=== PATIENT | male | born 1970 | race American Indian/Alaskan Native ===

== ENCOUNTER 2021-03-20 23:55 | Emergency (ER) | payer SELFPAY | END 2021-03-21 01:11 | LOC: ED 23:55 | DX: K59.00 Constipation, unspecified (principal); Z53.21 Procedure and treatment not carried out due to patient leaving prior to being seen by health care provider ==

== ENCOUNTER 2022-04-21 10:09 | Inpatient (IN) | payer SELFPAY ==
[2022-04-21 11:06] LABS: Mucus,Urine FEW /HPF
[2022-04-21 11:27] LABS: Basophils % (Auto) 0.3 % (0.0-1.8); Hematocrit 48.4 % (35.5-45.6); Hemoglobin 16.4 gm/dl (11.8-15.2); Lymphocytes # (Auto) 1.4 K/mm3 (1.2-5.4); Lymphocytes % (Auto) 11.4 % (13.4-35.0); Mean Corpuscular HGB Conc 34 % (32-34); Mean Corpuscular Volume 89 fl (84-94); Monocytes # (Auto) 0.6 K/mm3 (0.0-0.8); Monocytes % (Auto) 4.5 % (0.0-7.3); Platelet Count 377 K/mm3 (140-440); Red Blood Count 5.42 M/mm3 (3.65-5.03); Red Cell Distribution Width 13.3 % (13.2-15.2)
[2022-04-21 11:55] LABS: Alanine Aminotransferase 20 units/L (7-56); Albumin 4.9 g/dL (3.9-5); BUN/Creatinine Ratio 8; Blood Urea Nitrogen 8 mg/dL (9-20); Calcium 10.4 mg/dL (8.4-10.2); Hemolysis Index 4
[2022-04-21] MEDS ORDERED: MORPHINE 4 MG/1 ML INJ IV ONE ×2 (14:58→16:52)
[2022-04-21] MEDS ORDERED: ONDANSETRON 4 MG/2 ML INJ IV ONE (14:58)
[2022-04-21] MEDS ORDERED: SODIUM CHLORIDE 0.9% 1000 ML 1,000 ML IV ONE (14:58)
--- NOTE | 2022-04-21 17:08 | Cat Scan Report ---
CT ABDOMEN AND PELVIS WITHOUT CONTRAST INDICATION / CLINICAL INFORMATION: periumbilical pain. TECHNIQUE: Axial CT images were obtained through the abdomen and pelvis without IV contrast. All CT scans at this location are performed using CT dose reduction for ALARA by means of automated exposure control. COMPARISON: None available. FINDINGS: LOWER CHEST: No significant abnormality LIVER: Steatosis. GALLBLADDER/BILIARY TREE: No significant abnormality PANCREAS: No significant abnormality SPLEEN: No significant abnormality ADRENALS: No significant abnormality RIGHT KIDNEY / URETER: No significant abnormality LEFT KIDNEY / URETER: No significant abnormality URINARY BLADDER: No significant abnormality REPRODUCTIVE ORGANS: No significant abnormality STOMACH / BOWEL: Small bowel postoperative anastomosis in the central abdomen and lower anterior abdo men. Mid small bowel within the central and left abdomen is moderately dilated, fluid-filled, and inf lamed. There is abrupt transition in the region of the anastomotic suture in the central abdomen (ser ies 2 image 103). There is also an area of focal transition in the anterior abdomen (series 2 image 1 21). The proximal and distal small bowel are both decompressed. The colon is unremarkable. Appendix i s not seen. LYMPH NODES: No significant adenopathy. VASCULATURE: No significant abnormality. OTHER: No free air. No free fluid or focal fluid collection. There is a fat-containing ventral abdomi nal wall hernia in the supraumbilical right upper abdomen. SKELETAL SYSTEM: No acute osseous findings. IMPRESSION: 1. Findings consistent with moderate to high-grade small bowel obstruction. 2 potential focal transit ion points within the central abdomen in the region of the prior small bowel anastomosis and in the a nterior abdomen at this level, as above. No pneumatosis or free air. 2. Other chronic and incidental findings as above. Signer Name: Lam Higgins MD Signed: 04/21/2022 5:04 PM Workstation Name: [id number]
[2022-04-21 17:13] LABS: C-Reactive Protein 1.5 mg/dL (0.00-1.30)
--- NOTE | 2022-04-21 17:42 | History and Physical Report ---
History of Present Illness Chief complaint: My stomach hurts History of present illness: 52 YO Male with Chronic constipation presents to ED for evaluation. Patient reports "my stomach hurts". Patient states that over the past 24 hours he has experienced abdominal pain in the area of his umbilicus. Patient states that pain is 6/10, intermittent, without exacerbating or alleviating factors. Patient states that he used an enema this morning with small bowel movement. Patient states that he experienced continued symptoms after bowel movement. Patient subsequently failed outpatient therapy. Patient knowledges abdominal distention, inability to tolerate oral intake. Patient transported to [facility] via private vehicle for further care and evaluation of the aforementioned symptoms. The patient was seen and evaluated in the emergency department. All lab and imaging studies reviewed. Patient underwent CT scan of the abdomen and pelvis and was found to have high-grade bowel obstruction. Patient underwent NG tube placement for gastric decompression. Surgical team consulted in ED. Patient denies fever, chills, chest pain, palpitation, adductive cough, skin rash, trauma, recent contact, known exposure to COVID-19. No prior admission for review. No medication listed at time of admission for reconciliation. Advanced care planning conducted in ED. Past History Past Medical History: other (See HPI) Past Surgical History: hernia repair, bowel surgery Social history: single. denies: smoking, alcohol abuse, prescription drug abuse Family history: hypertension Medications and Allergies Allergies Allergy/AdvReac Type Severity Reaction Status Date / Time Penicillins Allergy Vomiting Verified 03/21/21 00:15 Review of Systems Constitutional: no weight loss, no weight gain, no fever, no chills Ears, nose, mouth and throat: no ear pain, no ear discharge, no tinnitis, no nose pain, no nasal congestion Cardiovascular: no chest pain, no orthopnea, no palpitations, no rapid/irregular heart beat, no lightheadedness Respiratory: no cough, no cough with sputum, no excessive sputum, no hemoptysis, no shortness of breath Gastrointestinal: abdominal pain, no nausea, no vomiting, no diarrhea, no coffee ground emesis, no indigestion Genitourinary Male: no hematuria, no flank pain, no discharge, no urinary frequency, no urinary hesitancy Rectal: no pain, no incontinence, no bleeding Musculoskeletal: no neck stiffness, no neck pain, no arm numbness/tingling, no low back pain Integumentary: no rash, no pruritis, no redness, no sores, no wounds Neurological: no head injury, no transient paralysis, no weakness, no parathesias, no numbness, no tingling, no seizures Psychiatric: no anxiety, no change in sleep habits, no insomnia, no change in appetite, no change in libido, no suicidal ideation Endocrine: no cold intolerance, no heat intolerance, no excessive thirst, no polyuria, no nocturia, no excessive sweating Hematologic/Lymphatic: no easy bruising, no easy bleeding Allergic/Immunologic: no urticaria, no allergic rhinitis, no wheezing Exam - Constitutional Vitals: Temp Pulse Resp BP Pulse Ox 98.3 F 84 18 183/112 99 04/21/22 10:41 04/21/22 17:13 04/21/22 17:13 04/21/22 17:13 04/21/22 17:13 General appearance: Present: mild distress - EENT Eyes: Present: PERRL ENT: hearing intact, clear oral mucosa - Neck Neck: Present: supple, normal ROM - Respiratory Respiratory effort: normal Respiratory: bilateral: CTA - Cardiovascular Heart Sounds: Present: S1 & S2. Absent: rub, click - Extremities Extremities: pulses symmetrical, No edema Peripheral Pulses: within normal limits - Abdominal General gastrointestinal: Present: soft, tender, distended, normal bowel sounds. Absent: hepatomegaly, splenomegaly, mass Localized gastrointestinal: tender: epigastric periumbilical Male genitourinary: Present: normal - Integumentary Integumentary: Present: clear, warm, dry - Musculoskeletal Musculoskeletal: gait normal, strength equal bilaterally - Psychiatric Psychiatric: appropriate mood/affect, intact judgment & insight - Neurologic Neurologic: CNII-XII intact, moves all extremities Results - Labs CBC & Chem 7: 04/21/22 11:03 04/21/22 11:03 Labs: Abnormal lab results 04/21/22 04/21/22 04/21/22 Range/Units 11:03 11:03 15:45 WBC 12.3 H (4.5-11.0) K/mm3 RBC 5.42 H (3.65-5.03) M/mm3 Hgb 16.4 H (11.8-15.2) gm/dl Hct 48.4 H (35.5-45.6) % Lymph % (Auto) 11.4 L (13.4-35.0) % Seg Neutrophils % 83.8 H (40.0-70.0) % Seg Neutrophils # 10.3 H (1.8-7.7) K/mm3 Chloride 96.4 L (98-107) mmol/L BUN 8 L (9-20) mg/dL Glucose 116 H (75-100) mg/dL Calcium 10.4 H (8.4-10.2) mg/dL C-Reactive Protein 1.50 H (0.00-1.30) mg/dL Total Protein 9.4 H (6.3-8.2) g/dL Assessment and Plan - Patient Problems (1) Complete small bowel obstruction Current Visit: Yes Status: Acute Plan to address problem: Serial abdominal exam, CT scan abdomen pelvis, supportive care, surgery team consulted in ED. NG tube inserted for nasogastric decompression, supportive care. NG tube to low wall suction. Monitor nasogastric drainage every shift. Monitor fluid balance. Bowel rest. (2) SIRS (systemic inflammatory response syndrome) Current Visit: Yes Status: Acute Plan to address problem: CBC, urinalysis, chest x-ray, empiric IV antibiotic therapy, CT scan abdomen pelvis, supportive care. Repeat CBC in a.m. (3) Abdominal pain Current Visit: Yes Status: Acute Plan to address problem: CT scan abdomen and pelvis, serial abdominal exam, surgery team consulted. Pain control. (4) Chronic constipation Current Visit: Yes Status: Acute Plan to address problem: Bowel regimen, supportive care. (5) DVT prophylaxis Current Visit: Yes Status: Acute Plan to address problem: SCD to bilateral lower extremities while in bed (6) Advance care planning Current Visit: Yes Status: Acute Plan to address problem: Disease education conducted, care plan discussed, diagnoses discussed, prognosis discussed, patient is full code. Patient knowledges understanding and agreement with care plan, +30 minutes. (7) Preventative health care Current Visit: Yes Status: Acute Plan to address problem: Patient counseled regarding risk factor reduction, patient counseled regarding outpatient primary care physician follow-up for all age and risk factor appropriate screening test. +30 minutes.
[2022-04-21] MEDS ORDERED: HYDROmorphone 0.5 MG/0.5 ML INJ IV PRN ×2 (17:43→17:48)
[2022-04-21] MEDS ORDERED: ACETAMINOPHEN 325 MG TAB PO PRN ×4 (17:43→17:48)
[2022-04-21] MEDS ORDERED: ALBUTEROL 2.5 MG/3 ML NEBU IH PRN (17:43)
[2022-04-21] MEDS ORDERED: ONDANSETRON 4 MG/2 ML INJ IV PRN ×3 (17:43→17:48)
[2022-04-21] MEDS ORDERED: MORPHINE 2 MG/1 ML INJ IV PRN (17:43)
--- NOTE | 2022-04-21 17:46 | Event Note ---
Date: 04/21/22 General surgery called for 52-year-old male with abdominal pain nausea and vomiting and work-up with CT scan shows small bowel obstruction. Patient is afebrile and stable with based on history small bowel obstruction likely due to adhesive disease from previous abdominal surgeries. Patient has NG tube placed in emergency room. Agree with current plan by keeping NG tube on suction and IV hydration. We will do official consultation tomorrow.
[2022-04-21] MEDS ORDERED: oxyCODONE /ACETAMINOPHEN 5-325MG TAB PO PRN (17:48)
[2022-04-21] MEDS ORDERED: ONDANSETRON 4 MG/2 ML INJ ONE (17:58)
[2022-04-21] MEDS: SODIUM CHLORIDE 0.9% 1000 ML 1,000 ML IV SCH (18:09)
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
--- NOTE | 2022-04-21 18:19 | XRay Report ---
ABDOMEN 1 VIEW(S) INDICATION / CLINICAL INFORMATION: ng tube placement. COMPARISON: None available. FINDINGS: TUBES / LINES: NGT in the mid stomach. BOWEL GAS PATTERN: No significant abnormality. FREE AIR / EXTRALUMINAL GAS: None seen. ADDITIONAL FINDINGS: No significant additional findings. IMPRESSION: 1. NGT as above. Signer Name: Heath Miranda MD Signed: 04/21/2022 6:15 PM Workstation Name: [id number]
[2022-04-21] MEDS: HYDROmorphone 0.5 MG/0.5 ML INJ IV PRN (20:57)
[2022-04-22] MEDS: HYDROmorphone 0.5 MG/0.5 ML INJ IV PRN ×3 (04:14→20:16)
[2022-04-22] MEDS: SODIUM CHLORIDE 0.9% 1000 ML 1,000 ML IV SCH ×2 (04:19→14:20)
[2022-04-22 05:39] LABS: Basophils % (Auto) 0.2 % (0.0-1.8); Eosinophils % (Auto) 0.4 % (0.0-4.3); Hemoglobin 14.3 gm/dl (11.8-15.2); Lymphocytes # (Auto) 2.5 K/mm3 (1.2-5.4); Lymphocytes % (Auto) 22.8 % (13.4-35.0); Mean Corpuscular HGB Conc 34 % (32-34); Mean Corpuscular Volume 90 fl (84-94); Monocytes % (Auto) 8.8 % (0.0-7.3); Platelet Count 301 K/mm3 (140-440); Red Blood Count 4.66 M/mm3 (3.65-5.03); Red Cell Distribution Width 13.1 % (13.2-15.2)
[2022-04-22 05:57] LABS: BUN/Creatinine Ratio 8; Blood Urea Nitrogen 10 mg/dL (9-20); Calcium 9.5 mg/dL (8.4-10.2); Hemolysis Index 5
--- NOTE | 2022-04-22 12:42 | Progress Note ---
Assessment and Plan Assessment and plan: 52-year-old male presented through the emergency department with complaint of abdominal pain, nausea and vomiting. Work-up in the emergency room with CT scan revealed a small bowel obstruction. Small bowel obstruction SIRS Abdominal pain 04/22/2022. CT scan revealed moderate to high grade small bowel obstruction. Patient with 2 potential focal transition points within the central abdomen in the region of the prior small bowel anastomosis and in the anterior abdomen. Etiology likely secondary to adhesions. Patient currently with NGT to low intermittent suction. We will continue with supportive care with IV fluid hydration, NGT and follow-up serial KUBs. Surgery following History Interval history: No new issues overnight Hospitalist Physical - Constitutional Vitals: Temp Pulse Resp BP Pulse Ox 98.6 F 68 18 153/94 100 04/22/22 10:07 04/22/22 10:07 04/22/22 10:07 04/22/22 10:04/22/22 10:07 General appearance: Present: mild distress - EENT Eyes: Present: PERRL, EOM intact ENT: hearing intact, clear oral mucosa, dentition normal - Neck Neck: Present: supple, normal ROM - Respiratory Respiratory effort: normal Respiratory: bilateral: CTA - Cardiovascular Rhythm: regular Heart Sounds: Present: S1 & S2. Absent: gallop, rub - Extremities Extremities: no ischemia, No edema, Full ROM - Abdominal General gastrointestinal: soft, non-tender, non-distended, normal bowel sounds - Integumentary Integumentary: Present: clear, warm, dry - Neurologic Neurologic: CNII-XII intact, moves all extremities Results - Labs CBC & Chem 7: 04/22/22 04:57 04/22/22 04:57 Labs: Laboratory Last Values WBC 11.0 K/mm3 (4.5-11.0) 04/22/22 04:57 RBC 4.66 M/mm3 (3.65-5.03) 04/22/22 04:57 Hgb 14.3 gm/dl (11.8-15.2) 04/22/22 04:57 Hct 42.0 % (35.5-45.6) D 04/22/22 04:57 MCV 90 fl (84-94) 04/22/22 04:57 MCH 31 pg (28-32) 04/22/22 04:57 MCHC 34 % (32-34) 04/22/22 04:57 RDW 13.1 % (13.2-15.2) L 04/22/22 04:57 Plt Count 301 K/mm3 (140-440) 04/22/22 04:57 Lymph % (Auto) 22.8 % (13.4-35.0) 04/22/22 04:57 Grimes % (Auto) 8.8 % (0.0-7.3) H 04/22/22 04:57 Eos % (Auto) 0.4 % (0.0-4.3) 04/22/22 04:57 Baso % (Auto) 0.2 % (0.0-1.8) 04/22/22 04:57 Lymph # (Auto) 2.5 K/mm3 (1.2-5.4) 04/22/22 04:57 Grimes # (Auto) 1.0 K/mm3 (0.0-0.8) H 04/22/22 04:57 Eos # (Auto) 0.0 K/mm3 (0.0-0.4) 04/22/22 04:57 Baso # (Auto) 0.0 K/mm3 (0.0-0.1) 04/22/22 04:57 Seg Neutrophils % 67.8 % (40.0-70.0) 04/22/22 04:57 Seg Neutrophils # 7.4 K/mm3 (1.8-7.7) 04/22/22 04:57 Sodium 138 mmol/L (137-145) 04/22/22 04:57 Potassium 3.9 mmol/L (3.6-5.0) 04/22/22 04:57 Chloride 99.6 mmol/L (98-107) 04/22/22 04:57 Carbon Dioxide 29 mmol/L (22-30) 04/22/22 04:57 Anion Gap 13 mmol/L 04/22/22 04:57 BUN 10 mg/dL (9-20) 04/22/22 04:57 Creatinine 1.3 mg/dL (0.8-1.3) 04/22/22 04:57 Estimated GFR > 60 ml/min 04/22/22 04:57 BUN/Creatinine Ratio 8 % 04/22/22 04:57 Glucose 108 mg/dL (75-100) H 04/22/22 04:57 Lactic Acid 1.50 mmol/L (0.7-2.0) 04/21/22 21:18 Calcium 9.5 mg/dL (8.4-10.2) 04/22/22 04:57 Total Bilirubin 0.90 mg/dL (0.1-1.2) 04/21/22 11:03 AST 18 units/L (5-40) 04/21/22 11:03 ALT 20 units/L (7-56) 04/21/22 11:03 Alkaline Phosphatase 51 units/L (35-129) 04/21/22 11:03 C-Reactive Protein 1.50 mg/dL (0.00-1.30) H 04/21/22 15:45 Total Protein 9.4 g/dL (6.3-8.2) H 04/21/22 11:03 Albumin 4.9 g/dL (3.9-5) 04/21/22 11:03 Albumin/Globulin Ratio 1.1 % 04/21/22 11:03 Amylase 64 units/L (27-131) 04/21/22 15:45 Lipase 16 units/L (13-60) 04/21/22 15:45 Urine WBC (Auto) 3.0 /HPF (0.0-6.0) 04/21/22 10:40 Urine RBC (Auto) 12.0 /HPF (0.0-6.0) 04/21/22 10:40 Urine Mucus Few /HPF 04/21/22 10:40 Duque/IV: Voiding Method Toilet Active Medications - Current Medications Current Medications: Generic Name Dose Route Start Last Admin Trade Name Freq PRN Reason Stop Dose Admin Acetaminophen 650 mg 04/21/22 17:48 Acetaminophen 325 Mg Tab PO Q4H PRN Pain MILD(1-3)/Fever >100.5/VEGAS Albuterol 2.5 mg 04/21/22 17:43 Albuterol 2.5 Mg/3 Ml Nebu IH Q4HRT PRN Shortness Of Breath Hydromorphone HCl 0.5 mg 04/21/22 17:48 04/22/22 04:14 Hydromorphone 0.5 Mg/0.5 Ml Inj IV 0.5 mg Q3H PRN Administration Pain , Severe (7-10) Sodium Chloride 1,000 mls @ 100 mls/hr 04/21/22 17:45 04/22/22 04:19 Nacl 0.9% 1000 Ml IV 100 mls/hr DIRECT CHAVEZ Administration Levofloxacin/Dextrose 500 mg in 100 mls @ 100 mls/hr 04/21/22 19:30 04/22/22 04:27 Levaquin 500mg/100ml IV 04/22/22 19:29 Infused Q24H CHAVEZ Infusion Protocol Morphine Sulfate 2 mg 04/21/22 17:48 Morphine 2 Mg/1 Ml Inj IV Q10H PRN Pain, Moderate (4-6) Ondansetron HCl 4 mg 04/21/22 17:48 04/21/22 18:10 Ondansetron 4 Mg/2 Ml Inj IV 4 mg Q8H PRN Administration Nausea And Vomiting Oxycodone/Acetaminophen 1 tab 04/21/22 17:48 Oxycodone /Acetaminophen 5-325mg Tab PO Q6H PRN Pain, Moderate (4-6) Sodium Chloride 10 ml 04/21/22 22:00 04/21/22 22:30 Sodium Chloride 0.9% 10 Ml Flush Syringe IV 10 ml BID CHAVEZ Administration Sodium Chloride 10 ml 04/21/22 17:48 Sodium Chloride 0.9% 10 Ml Flush Syringe IV PRN PRN LINE FLUSH
--- NOTE | 2022-04-22 15:07 | XRay Report ---
ABDOMEN 1 VIEW 04/22/2022 2:35 PM INDICATION / CLINICAL INFORMATION: SBO. COMPARISON: Yesterday. FINDINGS: TUBES / LINES: The position of the nasogastric tube has not changed. BOWEL GAS PATTERN: No evidence of bowel obstruction or mass effect. FREE AIR / EXTRALUMINAL GAS: None. ADDITIONAL FINDINGS: No significant additional findings. IMPRESSION: No acute abnormality or significant change. Signer Name: Neeraj Lang MD Signed: 04/22/2022 3:02 PM Workstation Name: [id number]
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
[2022-04-23] MEDS: MORPHINE 2 MG/1 ML INJ IV PRN ×2 (00:36→16:03)
[2022-04-23] MEDS: SODIUM CHLORIDE 0.9% 1000 ML 1,000 ML IV SCH ×2 (04:49→18:36)
[2022-04-23] MEDS: HYDROmorphone 0.5 MG/0.5 ML INJ IV PRN ×2 (04:56→22:48)
[2022-04-23 06:02] LABS: Basophils % (Auto) 0.3 % (0.0-1.8); Eosinophils # (Auto) 0.1 K/mm3 (0.0-0.4); Eosinophils % (Auto) 1.1 % (0.0-4.3); Hematocrit 40.4 % (35.5-45.6); Lymphocytes # (Auto) 2.4 K/mm3 (1.2-5.4); Lymphocytes % (Auto) 22.1 % (13.4-35.0); Mean Corpuscular HGB Conc 35 % (32-34); Mean Corpuscular Volume 90 fl (84-94); Monocytes # (Auto) 0.8 K/mm3 (0.0-0.8); Monocytes % (Auto) 7.3 % (0.0-7.3); Platelet Count 283 K/mm3 (140-440); Red Blood Count 4.52 M/mm3 (3.65-5.03); Red Cell Distribution Width 12.8 % (13.2-15.2)
[2022-04-23 06:21] LABS: BUN/Creatinine Ratio 10; Blood Urea Nitrogen 11 mg/dL (9-20); Hemolysis Index 8
--- NOTE | 2022-04-23 08:49 | Progress Note ---
Assessment and Plan Assessment and plan: 52-year-old male presented through the emergency department with complaint of abdominal pain, nausea and vomiting. Work-up in the emergency room with CT scan revealed a small bowel obstruction. Small bowel obstruction; NPO status, IV fluids, serial abdominal x-rays Patient is being followed by surgeon, repeated x-ray abdomen today SIRS; Continue current antibiotics and supportive care Abdominal pain; Treat the underlying cause, pain management IV fluids, supportive care 04/22/2022. CT scan revealed moderate to high grade small bowel obstruction. Patient with 2 potential focal transition points within the central abdomen in the region of the prior small bowel anastomosis and in the anterior abdomen. Etiology likely secondary to adhesions. Patient currently with NGT to low intermittent suction. We will continue with supportive care with IV fluid hydration, NGT and follow-up serial KUBs. Surgery following 04/23/22; continue supportive care, repeat abdominal x-ray again tomorrow. Eliot sin n.p.o. Surgery evaluation recommendation noted and appreciated Closely monitor History Interval history: I have seen and examined the patient at the bedside, patient's chart and medications reviewed Patient feels slightly better, had abdominal x-ray this morning which was unremarkable Patient is afebrile Vital signs noted Hospitalist Physical - Constitutional Vitals: Temp Pulse Resp BP Pulse Ox 98.4 F 92 H 16 160/107 95 04/23/22 05:05 04/23/22 05:05 04/23/22 05:05 04/23/22 05:05 04/23/22 05:05 General appearance: Present: mild distress, well-nourished - EENT Eyes: Present: PERRL, EOM intact - Neck Neck: Present: supple, normal ROM - Respiratory Respiratory effort: normal Respiratory: bilateral: diminished, negative: rales, rhonchi, wheezing - Cardiovascular Rhythm: regular Heart Sounds: Present: S1 & S2 - Extremities Extremities: no ischemia, No edema - Abdominal General gastrointestinal: soft, non-tender, non-distended, normal bowel sounds - Integumentary Integumentary: Present: clear, warm - Psychiatric Psychiatric: appropriate mood/affect, cooperative - Neurologic Neurologic: moves all extremities Results - Labs CBC & Chem 7: 04/23/22 05:19 04/23/22 05:19 Labs: Laboratory Last Values WBC 10.7 K/mm3 (4.5-11.0) 04/23/22 05:19 RBC 4.52 M/mm3 (3.65-5.03) 04/23/22 05:19 Hgb 14.0 gm/dl (11.8-15.2) 04/23/22 05:19 Hct 40.4 % (35.5-45.6) 04/23/22 05:19 MCV 90 fl (84-94) 04/23/22 05:19 MCH 31 pg (28-32) 04/23/22 05:19 MCHC 35 % (32-34) H 04/23/22 05:19 RDW 12.8 % (13.2-15.2) L 04/23/22 05:19 Plt Count 283 K/mm3 (140-440) 04/23/22 05:19 Lymph % (Auto) 22.1 % (13.4-35.0) 04/23/22 05:19 [place] % (Auto) 7.3 % (0.0-7.3) 04/23/22 05:19 Eos % (Auto) 1.1 % (0.0-4.3) 04/23/22 05:19 Baso % (Auto) 0.3 % (0.0-1.8) 04/23/22 05:19 Lymph # (Auto) 2.4 K/mm3 (1.2-5.4) 04/23/22 05:19 [place] # (Auto) 0.8 K/mm3 (0.0-0.8) 04/23/22 05:19 Eos # (Auto) 0.1 K/mm3 (0.0-0.4) 04/23/22 05:19 Baso # (Auto) 0.0 K/mm3 (0.0-0.1) 04/23/22 05:19 Seg Neutrophils % 69.2 % (40.0-70.0) 04/23/22 05:19 Seg Neutrophils # 7.4 K/mm3 (1.8-7.7) 04/23/22 05:19 Sodium 138 mmol/L (137-145) 04/23/22 05:19 Potassium 3.7 mmol/L (3.6-5.0) 04/23/22 05:19 Chloride 99.1 mmol/L (98-107) 04/23/22 05:19 Carbon Dioxide 26 mmol/L (22-30) 04/23/22 05:19 Anion Gap 17 mmol/L 04/23/22 05:19 BUN 11 mg/dL (9-20) 04/23/22 05:19 Creatinine 1.1 mg/dL (0.8-1.3) 04/23/22 05:19 Estimated GFR > 60 ml/min 04/23/22 05:19 BUN/Creatinine Ratio 10 % 04/23/22 05:19 Glucose 90 mg/dL (75-100) 04/23/22 05:19 Lactic Acid 1.50 mmol/L (0.7-2.0) 04/21/22 21:18 Calcium 9.0 mg/dL (8.4-10.2) 04/23/22 05:19 Total Bilirubin 0.90 mg/dL (0.1-1.2) 04/21/22 11:03 AST 18 units/L (5-40) 04/21/22 11:03 ALT 20 units/L (7-56) 04/21/22 11:03 Alkaline Phosphatase 51 units/L (35-129) 04/21/22 11:03 C-Reactive Protein 1.50 mg/dL (0.00-1.30) H 04/21/22 15:45 Total Protein 9.4 g/dL (6.3-8.2) H 04/21/22 11:03 Albumin 4.9 g/dL (3.9-5) 04/21/22 11:03 Albumin/Globulin Ratio 1.1 % 04/21/22 11:03 Amylase 64 units/L (27-131) 04/21/22 15:45 Lipase 16 units/L (13-60) 04/21/22 15:45 Urine WBC (Auto) 3.0 /HPF (0.0-6.0) 04/21/22 10:40 Urine RBC (Auto) 12.0 /HPF (0.0-6.0) 04/21/22 10:40 Urine Mucus Few /HPF 04/21/22 10:40 [place]/IV: Voiding Method Urinal Active Medications - Current Medications Current Medications: Generic Name Dose Route Start Last Admin Trade Name Freq PRN Reason Stop Dose Admin Acetaminophen 650 mg 04/21/22 17:48 Acetaminophen 325 Mg Tab PO Q4H PRN Pain MILD(1-3)/Fever >100.5/VEGAS Albuterol 2.5 mg 04/21/22 17:43 Albuterol 2.5 Mg/3 Ml Nebu IH Q4HRT PRN Shortness Of Breath Hydromorphone HCl 0.5 mg 04/21/22 17:48 04/23/22 04:56 Hydromorphone 0.5 Mg/0.5 Ml Inj IV 0.5 mg Q3H PRN Administration Pain , Severe (7-10) Sodium Chloride 1,000 mls @ 100 mls/hr 04/21/22 17:45 04/23/22 04:49 Nacl 0.9% 1000 Ml IV 100 mls/hr DIRECT CHAVEZ Administration Morphine Sulfate 2 mg 04/21/22 17:48 04/23/22 00:36 Morphine 2 Mg/1 Ml Inj IV 2 mg Q10H PRN Administration Pain, Moderate (4-6) Ondansetron HCl 4 mg 04/21/22 17:48 04/21/22 18:10 Ondansetron 4 Mg/2 Ml Inj IV 4 mg Q8H PRN Administration Nausea And Vomiting Oxycodone/Acetaminophen 1 tab 04/21/22 17:48 Oxycodone /Acetaminophen 5-325mg Tab PO Q6H PRN Pain, Moderate (4-6) Sodium Chloride 10 ml 04/21/22 22:00 04/22/22 22:23 Sodium Chloride 0.9% 10 Ml Flush Syringe IV 10 ml BID CHAVEZ Administration Sodium Chloride 10 ml 04/21/22 17:48 Sodium Chloride 0.9% 10 Ml Flush Syringe IV PRN PRN LINE FLUSH Nutrition/Malnutrition Assess - Dietary Evaluation Nutrition/Malnutrition Findings: Nutrition Notes Start: 04/22/22 20:00 Freq: Status: Active Protocol: Document 04/22/22 20:00 JONNY (Rec: 04/22/22 20:19 JONNY [id number]) Nutrition Notes 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 Current Diet NPO (since 04/21 17:44). Labs/Tests 04/22: Glu 108. Pertinent Medications 04/22: Nutritionally unremarkable. 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 Weight Status Overweight Subjective/Other Information RD consult for skin risk assessment. Pt currently on NPO. Pt is on Room Air, O2 saturation @ 97%, according to Physical Assessment History notes. Pt presents Abdominal Pain, constipation, and bloating, according to Physical Assessment History notes. Pt shows no signs of concern for skin risk at the time, according to Physical Assessment History notes. Plans to advance to test for tolerance of Clear Liquid Diet tomorrow, according to Progress notes. Pt is at risk for Small Bowel Perforation, according to Progress notes. Percent of energy/protein needs met: Pt currently on NPO. Burn Absent Trauma Absent GI Symptoms Nausea,Constipation,Other Food Allergy No Skin Integrity/Comment Assessment WNL. 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 As Evidenced by Signs and Symptoms Abdominal Pain, Constipation, and bloating, MD diagnosis. Is patient on ventilator? No Is Patient Ambulatory and/or Out of Bed Yes REE-([place]-St. Jeor-ambulatory/OOB) [ 2169.245 NUTR.MSJOOB] Kcal/Kg value to use for calculation 22 Approximate Energy Requirements Using 1846 kcal/Kg Calculation Used for Recommendations Kcal/kg Additional Notes Protein: 1-1.2 g/Kg ABW; 81-97 g/day. Fluids: 1 ml/Kcal, or as per MD. Nutrition Intervention Change Diet Order: When pertinent, advance to Clear Liquids Diet. Goal #1 Adjust the dietary intervention to better serve Pt's needs and clinical conditions during LOS. Goal #2 Maintain body weight within +/ -3% of admission body weight during LOS. Follow-Up By: 04/24/22 Additional Comments When pertinent, start monitoring food tolerance, %PO intake of meals, and BM.
[2022-04-23] MEDS ORDERED: hydrALAZINE 20 MG/1 ML INJ IV ONE (12:56)
--- NOTE | 2022-04-23 14:07 | Progress Note ---
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 Afebrile and stable showing some signs of return of bowel function. Patient to get small bowel follow-through today. If small bowel follow-through shows no obstruction can DC NG tube and start clear liquids. Subjective Date of service: 04/23/22 Narrative: No acute events overnight. Patient tolerated NG tube clamping most of the last 24 hours. Patient says that he is passing gas and denies any abdominal pain. Objective Vital Signs - 12hr 04/23/22 04/23/22 04/23/22 05:05 09:27 11:00 Temperature 98.4 F Pulse Rate 92 H Respiratory 16 18 Rate Blood Pressure 160/107 O2 Sat by Pulse 95 98 98 Oximetry 04/23/22 04/23/22 12:07 13:17 Temperature 99.3 F Pulse Rate 67 67 Respiratory 22 Rate Blood Pressure 172/99 172/99 O2 Sat by Pulse 99 Oximetry - General physical appearance well developed, no distress, no pain - ENT no hearing loss - Respiratory normal expansion, normal respiratory effort - Abdomen soft, not tender, not guarding, other (NG tube clamped, 500 cc drainage documented yesterday) - Labs 04/23/22 05:19 04/23/22 05:19 Diabetes panel 04/23/22 Range/Units 05:19 Sodium 138 (137-145) mmol/L Potassium 3.7 (3.6-5.0) mmol/L Chloride 99.1 (98-107) mmol/L Carbon Dioxide 26 (22-30) mmol/L BUN 11 (9-20) mg/dL Creatinine 1.1 (0.8-1.3) mg/dL Glucose 90 (75-100) mg/dL Calcium 9.0 (8.4-10.2) mg/dL Calcium panel 04/23/22 Range/Units 05:19 Calcium 9.0 (8.4-10.2) mg/dL Pituitary panel 04/23/22 Range/Units 05:19 Sodium 138 (137-145) mmol/L Potassium 3.7 (3.6-5.0) mmol/L Chloride 99.1 (98-107) mmol/L Carbon Dioxide 26 (22-30) mmol/L BUN 11 (9-20) mg/dL Creatinine 1.1 (0.8-1.3) mg/dL Glucose 90 (75-100) mg/dL Calcium 9.0 (8.4-10.2) mg/dL Adrenal panel 04/23/22 Range/Units 05:19 Sodium 138 (137-145) mmol/L Potassium 3.7 (3.6-5.0) mmol/L Chloride 99.1 (98-107) mmol/L Carbon Dioxide 26 (22-30) mmol/L BUN 11 (9-20) mg/dL Creatinine 1.1 (0.8-1.3) mg/dL Glucose 90 (75-100) mg/dL Calcium 9.0 (8.4-10.2) mg/dL
--- NOTE | 2022-04-23 16:44 | Event Note ---
Date: 04/23/22 Patient had small bowel follow-through today. There is no official reading as yet but images available for viewing show that contrast is not traversing into the distal small bowel. Patient said that the radiologist told him that there was slow transit of contrast and he will repeat the film. When I spoke to the patient over the phone he said he had just vomited. I spoke to the nurse and asked her to resume low intermittent wall suction of his NG tube. We will repeat abdominal x-ray in the morning.
--- NOTE | 2022-04-23 17:20 | Fluoroscopy Report ---
Small bowel follow-through HISTORY: f/u sbo. Technique: Single contrast water-soluble technique utilized to evaluate the small bowel. Findings: Small bowel transit time was within 3 hours which is normal. No fold thickening, mass, ma ss effect, stenosis, or obstruction. . Impression: Unremarkable exam. Fluoroscopic time: 0 minutes Number of fluoroscopic images: 0 Signer Name: Heath Miranda MD Signed: 04/23/2022 5:15 PM Workstation Name: [id number]
[2022-04-24] MEDS: SODIUM CHLORIDE 0.9% 1000 ML 1,000 ML IV SCH (06:56)
--- NOTE | 2022-04-24 09:50 | XRay Report ---
XR abdomen 1V ap INDICATION: f/u sbo. COMPARISON: 04/23/2022 FINDINGS: Barium has progressed into the distal colon. There are no dilated loops of bowel on the current exam. Signer Name: Conner Arreguin MD Signed: 04/24/2022 9:46 AM Workstation Name: [id number]
[2022-04-24 12:43] VITALS: BP 188/93
--- NOTE | 2022-04-24 15:28 | Progress Note ---
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 Afebrile and stable showing clinical signs of resolution of bowel obstruction. Okay to discharge patient home from surgical perspective. Advised patient to advance diet slowly and as tolerated. He expressed understanding. No need for patient to follow-up with me in the office since we did not perform surgery. Subjective Date of service: 04/24/22 Narrative: No acute events overnight. Patient had a small bowel follow-through series that was negative for obstruction. Contrast had reached the colon within 3 hours which was read as normal. Abdominal x-ray this morning shows barium in the colon with no dilated small bowel. Patient says he has had 2 bowel movements and tolerate his NG tube being out since last night. Patient is also tolerated full liquids since lunchtime today. Objective Vital Signs - 12hr 04/24/22 04/24/22 04/24/22 05:39 11:44 13:27 Temperature 97.2 F L 98.7 F Pulse Rate 66 67 Respiratory 20 18 20 Rate Blood Pressure 152/92 188/93 O2 Sat by Pulse 100 98 100 Oximetry - General physical appearance well developed, no distress, no pain - Eyes PERRL - ENT no hearing loss - Respiratory normal expansion, normal respiratory effort - Abdomen soft, not tender, not distended - Psychiatric oriented to time, oriented to person - Labs 04/23/22 05:19 04/23/22 05:19 - Imaging Abdominal x-ray: report reviewed, image reviewed
--- NOTE | 2022-04-24 16:27 | Discharge Summary ---
Providers - Providers Date of Admission: 04/21/22 17:48 Date of discharge: 04/24/22 Attending physician: KALLIE KEYES 04/21/22 18:07 Consult to Physician [CONS] Stat Comment: Consulting Provider: CECI SMALL Physician Instructions: Reason For Exam: SBO Primary care physician: VESNA LUCIO Hospitalization Condition: Good Hospital course: 52-year-old male presented through the emergency department with complaint of abdominal pain, nausea and vomiting. Work-up in the emergency room with CT scan revealed a small bowel obstruction. Small bowel obstruction; NPO status, IV fluids, serial abdominal x-rays Patient is being followed by surgeon, repeated x-ray abdomen today SIRS; Continue current antibiotics and supportive care Abdominal pain; Treat the underlying cause, pain management IV fluids, supportive care 04/22/2022. CT scan revealed moderate to high grade small bowel obstruction. Patient with 2 potential focal transition points within the central abdomen in the region of the prior small bowel anastomosis and in the anterior abdomen. Etiology likely secondary to adhesions. Patient currently with NGT to low intermittent suction. We will continue with supportive care with IV fluid hydration, NGT and follow-up serial KUBs. Surgery following 04/23/22; continue supportive care, repeat abdominal x-ray again tomorrow. Continue n.p.o. Surgery evaluation recommendation noted and appreciated Closely monitor Disposition: 01 HOME / SELF CARE / HOMELESS Final Discharge Diagnosis (Prints w/discharge instructions): Small bowel obstruction; resolved. SARS; improved. Abdominal pain; improved Time spent for discharge: 35 min Core Measure Documentation - Palliative Care Palliative Care/ Comfort Measures: Not Applicable - Core Measures Any of the following diagnoses?: none Exam - Constitutional Vitals: Temp Pulse Resp BP Pulse Ox 98.7 F 67 20 188/93 100 04/24/22 11:44 04/24/22 11:44 04/24/22 13:27 04/24/22 11:44 04/24/22 13:27 Plan Activity: advance as tolerated Diet: other (Full liquid diet, surgery recommend to advance diet slowly as tolerated) Additional Instructions: Advance diet slowly as tolerated. Advised to follow your primary care physician in 1 week. If you have worsening symptoms contact MD or go to the nearest emergency room as needed Follow up with: VESNA LUCIO MD [Primary Care Provider] - 7 Days Prescriptions: oxyCODONE /ACETAMINOPHEN [Percocet 5/325 mg] 1 tab PO Q6H PRN #10 tablet PRN Reason: Pain, Moderate (4-6) Ondansetron [Zofran Odt] 4 mg PO Q8HR #15 tab.desirae
== END 2022-04-24 17:44 | disposition home or self-care (01) | DRG 389 ==
LOC: ED 10:09 → 3A 17:48
PROVIDERS: ADMIT Internal Medicine; ATTEND Internal Medicine
PROC: 0D9670Z Drainage of Stomach with Drainage Device, Via Natural or Artificial Opening (ICD-10-PCS; principal; 2022-04-21)
DX: K56.52 Intestinal adhesions [bands] with complete obstruction (principal); R65.10 Systemic inflammatory response syndrome (SIRS) of non-infectious origin without acute organ dysfunction; K59.09 Other constipation; I10 Essential (primary) hypertension; Z88.0 Allergy status to penicillin; Z82.49 Family history of ischemic heart disease and other diseases of the circulatory system; Z91.14 Patient's other noncompliance with medication regimen; Z79.899 Other long term (current) drug therapy
CPT/HCPCS: 36415; 74018; 74176; 74248; 80048; 80053; 81015; 82140; 82150; 83690; 85025; 86140; 94640; G0378; J3490; J0360; J1956; J2270; J2405; J7030